=== PATIENT | male | born 1950 | race Hispanic/Latino ===

== ENCOUNTER → 2018-01-14 | Outpatient (CLI) | payer MEDICARE ==
[~2018-01-14] VITALS: Ht 172.7 cm; Wt 74.8 kg
[~2018-01-14] MED LIST: REGADENOSON 0.4 MG/5 ML PF SYG IVP SCH
== END | disposition home or self-care (01) ==
LOC: SHCH 09:02
PROVIDERS: ATTEND Internal Medicine Cardiovascular Disease
DX: I49.5 Sick sinus syndrome (principal); R07.9 Chest pain, unspecified
CPT/HCPCS: 78452; 93017; 96374; A9500 ×2; J2785

== ENCOUNTER 2018-07-20 07:52 | Day surgery (SDC) | payer MEDICARE ==
[2018-07-18 13:56] VITALS: BP 104/80
[2018-07-18 14:16] LABS: BASOPHILS % (AUTO) 0.6 % (0.0-5.0); EOSINOPHILS % (AUTO) 4.4 % (0.0-8.0); LYMPHOCYTES % (AUTO) 25.7 % (21.0-51.0); MEAN CORPUSCULAR HGB CONC 34.6 g/dL (32.0-36.0); MEAN CORPUSCULAR VOLUME 95.2 fL (79-99); MONOCYTES % (AUTO) 7.4 % (3.0-13.0); NEUTROPHILS % (AUTO) 61.9 % (40.0-77.0); NUCLEATED RED BLOOD CELLS 0.1 % (0.0-0.19); PLATELET COUNT (AUTO) 170 K/uL (130-400); RED CELL DISTRIBUTION WIDTH 13.2 % (11.0-15.5); WHITE BLOOD COUNT (AUTO) 6.1 K/uL (4.8-10.8)
[2018-07-18 14:30] LABS: INR 0.89 (0.85-1.15); PARTIAL THROMBOPLASTIN TIME 26.1 SEC (26.3-35.5); PROTHROMBIN TIME 9.4 SEC (9.6-11.6)
[2018-07-18 14:42] LABS: BILIRUBIN,URINE Negative (NEGATIVE); COLOR,URINE Yellow (YELLOW); GLUCOSE, URINE (UA) Negative (NEGATIVE); KETONES,URINE Negative (NEGATIVE); LEUKOCYTE ESTERASE ,URINE Negative (NEGATIVE); NITRATE,URINE Negative (NEGATIVE); OCCULT BLOOD,URINE Negative (NEGATIVE); PH,URINE 7.5 (5.0-8.0); PROTEIN,URINE Negative (NEGATIVE); UROBILINOGEN,URINE 0.2 mg/dL (0.2-1.0)
[2018-07-18 14:46] LABS: APPEARANCE,URINE CLEAR (CLEAR)
[2018-07-18 15:01] LABS: CREATININE 1.9 mg/dL (0.5-1.5); POTASSIUM 3.5 mmol/L (3.5-5.1)
--- NOTE | 2018-07-19 14:43 | NUR ---
NOTE REPORTED BUN/CREAT TO RAIMUNDO RUSSELL, NO FURTHER ORDERS GIVEN.
[~2018-07-20] VITALS: Ht 170.2 cm; Wt 77.5 kg
[2018-07-20] VITALS (10 sets, daily range): BP systolic 107–147; BP diastolic 66–92
[~2018-07-20 07:52] MED LIST changes: +AMLO5TAB9 PO; +ASPI-1181 PO; +FISH1CAP27 PO; +FURO40TA5 PO; +LEVO50TA11 PO; +LISI40TA4 PO; +LOVA20TA3 PO; +METO50TA18 PO; +MULT1TAB70 PO; +NITR0.4T50 SL; -REGADENOSON 0.4 MG/5 ML PF SYG IVP SCH; +SODIUM CHLORIDE 0.9% 500ML 500 ML IV SCH; +TAMS0.4C32 PO; +TERB250T51 PO
[2018-07-20] MEDS ORDERED: SODIUM CHLORIDE 0.9% 1000ML 1,000 ML IV ONE (08:38)
[2018-07-20] MEDS ORDERED: NITROGLYCERIN 5 MG/ML 10 ML VIAL IV ONE (11:22)
[2018-07-20] MEDS ORDERED: IOHEXOL 350 MG/ML 100ML INFUS..BTL IV ONE (11:23)
[2018-07-20] MEDS ORDERED: LIDOCAINE HCL 2% 20ML ONE (11:23)
[2018-07-20] MEDS ORDERED: IOHEXOL-350 50ML VIAL IV ONE (12:11)
[2018-07-20] MEDS ORDERED: FENTANYL CITRATE PF 50 MCG/1 ML 2ML VIAL ONE (12:11)
[2018-07-20] MEDS ORDERED: MIDAZOLAM HCL 1 MG/ML 2ML VIAL ONE (12:12)
[2018-07-20] MEDS ORDERED: SODIUM CHLORIDE 0.9% 1000ML 1,000 ML IV SCH (12:43)
--- NOTE | 2018-07-20 18:36 | NUR ---
DC DC INSTRUCTIONS GIVEN TO PT / FRIEND, INSTRUCTED TO F/U WITH DR. ALANIS IN [place] 07-29-18, TO CONTINE HOME MEDICATIONS . DRESSING TO RIGHT GROIN DRY AND INTACT NEUROVASCULAR CHECKS WNL. PEDAL PULSE PRESENT . PT WILL BE DISCHARGE HOME ONCE 6 HOURS OF IVF COMPLETED.
== END 2018-07-20 18:55 | disposition home or self-care (01) ==
LOC: DAH 07:52
PROVIDERS: ATTEND Internal Medicine Cardiovascular Disease
DX: I47.2 Ventricular tachycardia (principal); R07.9 Chest pain, unspecified; Z98.890 Other specified postprocedural states; I10 Essential (primary) hypertension; E03.9 Hypothyroidism, unspecified; E78.5 Hyperlipidemia, unspecified; Z95.0 Presence of cardiac pacemaker; Z79.899 Other long term (current) drug therapy; Z79.01 Long term (current) use of anticoagulants
CPT/HCPCS: 36415; 71045; 80048; 81003; 85025; 85610; 85730; 93005; 93458; A4606; C1760; C1894; J1644; J2250; J3010; J3490 ×2; J7030; Q9965; Q9967 ×2; 99156; 99157

== ENCOUNTER → 2019-03-03 | Outpatient (CLI) | payer MEDICARE ==
[~2019-03-03] MED LIST changes: -SODIUM CHLORIDE 0.9% 500ML 500 ML IV SCH
== END | disposition home or self-care (01) ==
LOC: RAH 08:48
PROVIDERS: ATTEND Urology
DX: N20.0 Calculus of kidney (principal); R31.29 Other microscopic hematuria; N28.89 Other specified disorders of kidney and ureter
CPT/HCPCS: 76770

== ENCOUNTER → 2019-04-13 | Outpatient (CLI) | payer MEDICARE | END | disposition home or self-care (01) | LOC: RAH 10:28 | PROVIDERS: ATTEND Urology | DX: N20.0 Calculus of kidney (principal); N28.9 Disorder of kidney and ureter, unspecified; R31.29 Other microscopic hematuria; I70.0 Atherosclerosis of aorta | CPT/HCPCS: 74176 ==

== ENCOUNTER 2023-03-23 06:15 | Day surgery (SDC) | payer OTHER, MEDICARE ==
[2023-03-22 09:54] VITALS: BP 138/95; PULSE 58; RESP 17
[2023-03-22 10:25] LABS: BASOPHILS # (AUTO) 0.04 K/uL (0.00-0.20); BASOPHILS % (AUTO) 0.5 % (0.0-5.0); EOSINOPHILS % (AUTO) 2.6 % (0.0-8.0); HEMATOCRIT 44.2 % (42-54); IMMATURE GRANULOCYTE ABSOLUTE 0.02 K/uL (0-1); LYMPHOCYTES # (AUTO) 1.3 K/uL (1.0-4.8); LYMPHOCYTES % (AUTO) 17.4 % (21.0-51.0); MEAN CORPUSCULAR HEMOGLOBIN 33.1 pg (27.0-33.0); MEAN CORPUSCULAR HGB CONC 34.4 g/dL (32.0-36.0); MEAN CORPUSCULAR VOLUME 96.3 fL (79-99); MONOCYTES # (AUTO) 0.5 K/uL (0.1-1.0); MONOCYTES % (AUTO) 6.5 % (3.0-13.0); NEUTROPHILS # (AUTO) 5.5 K/uL (1.8-7.7); NEUTROPHILS % (AUTO) 72.7 % (40.0-77.0); PLATELET COUNT (AUTO) 148 K/uL (130-400); RED BLOOD CELL COUNT(AUTO) 4.59 MIL/uL (4.50-6.20); RED CELL DISTRIBUTION WIDTH 13.4 % (11.0-15.5); WHITE BLOOD COUNT (AUTO) 7.6 K/uL (4.8-10.8)
[2023-03-22 10:35] LABS: CREATININE 2.2 mg/dL (0.5-1.5); POTASSIUM 3.5 mmol/L (3.5-5.1)
[2023-03-23] VITALS (8 sets, daily range): BP systolic 98–156; BP diastolic 68–94; PULSE 54–66; RESP 10–19
[~2023-03-23] VITALS: Ht 162.6 cm; Wt 74.8 kg
[~2023-03-23 06:15] MED LIST changes: +ACET-2743 PO; +AMLO-257 PO; -AMLO5TAB9 PO; -ASPI-1181 PO; +ASPI-1443 PO; +FOLI0.8T43 PO; -LISI40TA4 PO; +LISI40TA9 PO; -MULT1TAB70 PO; -NITR0.4T50 SL; -TAMS0.4C32 PO; -TERB250T51 PO; +flaxseed PO
[2023-03-23] MEDS ORDERED: 0.9%NACL 1000ML 1,000 ML IV ONE (06:16)
[2023-03-23 06:44] LABS: INR 0.94 (0.85-1.15); PROTHROMBIN TIME 10.9 SEC (9.6-11.6)
[2023-03-23] MEDS ORDERED: LIDOCAINE HCL 1% MDV 50ML VIAL ONE (07:08)
[2023-03-23] MEDS ORDERED: BUPIVACAINE/PF 0.25% 30ML VIAL IJ ONE (07:09)
[2023-03-23] MEDS ORDERED: CEFAZOLIN SODIUM 1 GM VIAL ONE (07:09)
[2023-03-23] MEDS ORDERED: FENTANYL CITRATE PF 50 MCG/1 ML 2ML VIAL ONE (07:25)
[2023-03-23] MEDS ORDERED: MIDAZOLAM HCL 1 MG/ML 2ML VIAL ONE ×2 (07:26→08:15)
[2023-03-23] MEDS ORDERED: MEPERIDINE-PF 25 MG/ML SYG ONE ×2 (07:37→08:15)
[2023-03-23] MEDS ORDERED: IOHEXOL-350 50ML VIAL IV ONE (07:57)
[2023-03-23] MEDS ORDERED: BACITRACIN 1 EACH PACKET TP ONE (08:55)
[2023-03-23] MEDS ORDERED: TRAM50TA4 PO (09:13)
[2023-03-23] MEDS ORDERED: ACETAMINOPHEN 500 MG TABLET PO PRN (09:30)
[2023-03-23] MEDS ORDERED: ACETAMINOPHEN WITH CODEINE 1 TAB TAB PO PRN (09:30)
== END 2023-03-23 12:30 | disposition home or self-care (01) ==
LOC: DAH 06:15
PROVIDERS: ATTEND Internal Medicine Cardiovascular Disease
DX: I49.5 Sick sinus syndrome (principal); I49.1 Atrial premature depolarization; I10 Essential (primary) hypertension; E03.9 Hypothyroidism, unspecified; E78.5 Hyperlipidemia, unspecified; Z95.0 Presence of cardiac pacemaker; F17.210 Nicotine dependence, cigarettes, uncomplicated; T82.198A Other mechanical complication of other cardiac electronic device, initial encounter; Y83.8 Other surgical procedures as the cause of abnormal reaction of the patient, or of later complication, without mention of misadventure at the time of the procedure; Z79.82 Long term (current) use of aspirin; Z79.01 Long term (current) use of anticoagulants; Z79.899 Other long term (current) drug therapy; Z79.890 Hormone replacement therapy; Z98.890 Other specified postprocedural states
CPT/HCPCS: 80048; 85025; 36415 ×2; 93005; 33207; 85610; 85730; 71045; A4223 ×2; C1785; C1898; J0690; J7030; J0665; J2250 ×2; J2175 ×2; J3490; Q9967; A4215; A4222; A4221; A4663; A4216; A4606; 99156; 99157; J3010